=== PATIENT | female | born 1950 | race Caucasian/White ===

== ENCOUNTER → 2017-11-28 | Outpatient (CLI) | payer MEDICARE ==
[2015-04-21 18:05] VITALS: BP 90/56
[~2017-11-28] MED LIST: ALLO100T PO; DICY10CA53 PO; FAMO-63 PO; NITR100C PO; ONDA8TAB12 PO; SITA100T PO; TRAM50TA PO
--- NOTE | 2017-11-28 10:37 | RAD ---
INDICATION: Generalized abdominal pain for 2 weeks. TECHNIQUE: Ultrasound abdomen complete was performed. No comparison is available. FINDINGS: Visualized pancreas is unremarkable, much of the pancreas is obscured by bowel gas. Aorta is normal caliber. IVC is patent. Liver is diffusely increased in echogenicity and right hepatic lobe measures over 20 cm in length. Discrete hepatic lesion is not apparent. Gallbladder is reported as surgically absent. Common bile duct measures 6 mm, can be a normal finding in a patient of this age post cholecystectomy. Kidneys are without hydronephrosis. There are echogenic foci in the right kidney which could be vascular calcifications or nonobstructing renal calculi. There is a 26 mm simple cyst in the left kidney, probably parapelvic cysts. Spleen is not enlarged. IMPRESSION: 1. Fatty infiltration of the liver. 2. Cholecystectomy. 3. Right renal echogenic foci may be vascular calcifications or nonobstructing stones. 4. Left renal cyst. Electronically signed by: Doron Ortiz MD (11/28/2017 10:34 AM) [facility]
== END | disposition home or self-care (01) ==
LOC: US 09:26
PROVIDERS: ATTEND Family Medicine
DX: K76.0 Fatty (change of) liver, not elsewhere classified (principal); N28.1 Cyst of kidney, acquired; Z90.49 Acquired absence of other specified parts of digestive tract
CPT/HCPCS: 76700